=== PATIENT | male | born 1965 | race American Indian/Alaskan Native ===

== ENCOUNTER 2017-04-15 10:08 | Emergency (ER) | payer OTHER, BC ==
[2017-04-15 10:15] VITALS: BP 124/68
--- NOTE | 2017-04-15 11:09 | Emergency Department Report ---
ED Lower Extremity HPI - General Chief Complaint: Extremity Problem,Nontraumatic Stated Complaint: RIGHT ANKLE SWOLLEN Time Seen by Provider: 04/15/17 10:23 Source: patient Mode of arrival: Ambulatory Limitations: No Limitations - History of Present Illness MD Complaint: other (FOOT- HEAL AREA) -: Sudden (SINCE ) Improves With: nothing Associated Symptoms: denies: snap/pop sensation, swelling, numbness, tingling, unable to bear weight, able to partially bear weight, ambulatory - Related Data Previous Rx's Medication Instructions Recorded Last Taken Type predniSONE [Deltasone] 20 mg PO DAILY #5 tablet 04/15/17 Unknown Rx traMADol [Ultram] 50 mg PO Q6HR PRN #10 tablet 04/15/17 Unknown Rx Allergies Allergy/AdvReac Type Severity Reaction Status Date / Time No Known Allergies Allergy Unverified 04/15/17 10:15 ED Review of Systems ROS: Stated complaint: RIGHT ANKLE SWOLLEN Other details as noted in HPI Comment: All other systems reviewed and negative Musculoskeletal: other (R FOOT PAIN - HE POINTS TO HEAL; WORKS FOR [employer]) ED Past Medical Hx - Past Medical History Previous Medical History?: Yes Hx Hypertension: Yes - Surgical History Past Surgical History?: No - Social History Smoking Status: Never Smoker Substance Use Type: None - Medications Home Medications: Home Medications Medication Instructions Recorded Confirmed Last Taken Type predniSONE [Deltasone] 20 mg PO DAILY #5 tablet 04/15/17 Unknown Rx traMADol [Ultram] 50 mg PO Q6HR PRN #10 tablet 04/15/17 Unknown Rx ED Physical Exam - General Limitations: No Limitations General appearance: alert, in no apparent distress - Head Head exam: Present: atraumatic - Eye Eye exam: Present: PERRL - ENT ENT exam: Present: mucous membranes moist - Neck Neck exam: Present: normal inspection - Respiratory Respiratory exam: Present: normal lung sounds bilaterally - Cardiovascular Cardiovascular Exam: Present: regular rate - GI/Abdominal GI/Abdominal exam: Present: soft - Rectal Rectal exam: Present: deferred - Extremities Exam Extremities exam: Present: normal inspection, full ROM, normal capillary refill. Absent: tenderness, pedal edema, joint swelling - Back Exam Back exam: Present: normal inspection, full ROM - Neurological Exam Neurological exam: Present: alert, oriented X3, CN II-XII intact - Psychiatric Psychiatric exam: Present: normal affect, normal mood - Skin Skin exam: Present: warm, dry, intact ED Course Vital Signs 04/15/17 10:12 Temperature 98 F Pulse Rate 84 Respiratory 20 Rate Blood Pressure 124/68 O2 Sat by Pulse 100 Oximetry - Reevaluation(s) Reevaluation #1: 04/15/17 11:31 TO ER W RIGHT HEEL PAIN NEW SHOES FOR 9$ AND THEN IT STARTED HE WORKS W [employer] N/V INTACT GOOD PULSES FULL ROM 'NO POINT TENDERNESS XRAY NOTED NO TRAUMA DISCUSSED FOOT CARE MEDICATED DC HOME W DC POC ED Lower Extremity MDM - Radiology Data Radiology results: image reviewed - Medical Decision Making SEE NOTE - Differential Diagnosis RO FX Critical care attestation.: If time is entered above; I have spent that time in minutes in the direct care of this critically ill patient, excluding procedure time. ED Disposition Clinical Impression: Heel pain, Arthritis Disposition: DC-01 TO HOME OR SELFCARE Is pt being admited?: No Does the pt Need Aspirin: No Condition: Stable Instructions: Arthralgia (ED) Prescriptions: predniSONE [Deltasone] 20 mg PO DAILY #5 tablet traMADol [Ultram] 50 mg PO Q6HR PRN #10 tablet PRN Reason: Pain Referrals: PRIMARY CARE, [Referring] - 3-5 Days EMILIO CARRILLO MD [Staff Physician] - 3-5 Days SHELBI LUDWIG MD [Staff Physician] - 3-5 Days Time of Disposition: 11:08
[2017-04-15] MEDS ORDERED: TORADOL IM ONE (11:30)
--- NOTE | 2017-04-15 12:20 | XRay Report ---
RIGHT ANKLE RADIOGRAPHS INDICATION: Right ankle pain. COMPARISON: None similar at this institution. FINDINGS: AP, lateral and oblique right ankle radiographs demonstrate intact mortise, malleoli and talar dome contour. Subtle diffuse soft tissue swelling not entirely excluded versus physiologic. CONCLUSION: No acute right ankle bony abnormality, as described. Please correlate. Thank you for the opportunity to participate in this patient's care.
== END 2017-04-15 12:42 | disposition home or self-care (01) ==
LOC: ED 10:08
DX: M79.671 Pain in right foot (principal); M19.90 Unspecified osteoarthritis, unspecified site; I10 Essential (primary) hypertension
CPT/HCPCS: 73610; 96372; 99283; J1885

== ENCOUNTER 2017-07-31 09:26 | Emergency (ER) | payer OTHER, BC ==
[2017-07-31 09:35] VITALS: BP 141/99
--- NOTE | 2017-07-31 10:59 | Emergency Department Report ---
- General Chief complaint: Skin/Abscess/Foreign Body Stated complaint: BED BUGS Time Seen by Provider: 07/31/17 09:39 Source: patient Mode of arrival: Ambulatory Limitations: No Limitations - History of Present Illness Initial comments: This is a 51-year-old male nontoxic, well nourished in appearance, no acute signs of distress presents to the ED with c/o of itching to bilateral upper extremities only. Patient stated that he was diagnosed with bedbugs and last week got his house treated and has subsided but the itching has never subsided. Patient stated that he be taking [id number] creams with no relief. Patient denies any fever, chills, nausea, vomiting, headache, stiff neck, numbness, tingling, back pain, chest pain or shortness of breath. Patient denies any allergies. PMH includes HTN. MD complaint: rash (itching) -: week(s) (1) Location: [facility] Severity: mild Severity scale (0 -10): 0 Consistency: constant Improves with: none Worsens with: none Context: none Associated symptoms: denies other symptoms Treatments Prior to Arrival: none - Related Data Previous Rx's Medication Instructions Recorded Last Taken Type predniSONE [Deltasone] 20 mg PO DAILY #5 tablet 04/15/17 Unknown Rx traMADol [Ultram] 50 mg PO Q6HR PRN #10 tablet 04/15/17 Unknown Rx Prednisone [predniSONE 10 mg 10 mg PO .TAPER #1 tab.ds.pk 07/31/17 Unknown Rx (6-Day Pack, 21 Tabs)] diphenhydrAMINE [Benadryl CAP] 50 mg PO Q8HR PRN #20 capsule 07/31/17 Unknown Rx Allergies Allergy/AdvReac Type Severity Reaction Status Date / Time No Known Allergies Allergy Unverified 07/31/17 09:35 Abscess Boil HPI - HPI Chief Complaint: Skin/Abscess/Foreign Body Stated Complaint: BED BUGS Time Seen by Provider: 07/31/17 09:39 Home Medications: Previous Rx's Medication Instructions Recorded Last Taken Type predniSONE [Deltasone] 20 mg PO DAILY #5 tablet 04/15/17 Unknown Rx traMADol [Ultram] 50 mg PO Q6HR PRN #10 tablet 04/15/17 Unknown Rx Prednisone [predniSONE 10 mg 10 mg PO .TAPER #1 tab.ds.pk 07/31/17 Unknown Rx (6-Day Pack, 21 Tabs)] diphenhydrAMINE [Benadryl CAP] 50 mg PO Q8HR PRN #20 capsule 07/31/17 Unknown Rx Allergies/Adverse Reactions: Allergies Allergy/AdvReac Type Severity Reaction Status Date / Time No Known Allergies Allergy Unverified 07/31/17 09:35 ED Review of Systems ROS: Stated complaint: BED BUGS Other details as noted in HPI Constitutional: denies: chills, fever Eyes: denies: eye pain, eye discharge, vision change ENT: denies: ear pain, throat pain Respiratory: denies: cough, shortness of breath, wheezing Cardiovascular: denies: chest pain, palpitations Endocrine: no symptoms reported Gastrointestinal: denies: abdominal pain, nausea, diarrhea Genitourinary: denies: urgency, dysuria Musculoskeletal: denies: back pain, joint swelling, arthralgia Skin: denies: rash, lesions Neurological: denies: headache, weakness, paresthesias Psychiatric: denies: anxiety, depression Hematological/Lymphatic: denies: easy bleeding, easy bruising ED Past Medical Hx - Past Medical History Previous Medical History?: Yes Hx Hypertension: Yes Additional medical history: High cholesterol - Surgical History Past Surgical History?: No - Social History Smoking Status: Never Smoker Substance Use Type: None - Medications Home Medications: Home Medications Medication Instructions Recorded Confirmed Last Taken Type predniSONE [Deltasone] 20 mg PO DAILY #5 tablet 04/15/17 Unknown Rx traMADol [Ultram] 50 mg PO Q6HR PRN #10 tablet 04/15/17 Unknown Rx Prednisone [predniSONE 10 mg 10 mg PO .TAPER #1 tab.ds.pk 07/31/17 Unknown Rx (6-Day Pack, 21 Tabs)] diphenhydrAMINE [Benadryl CAP] 50 mg PO Q8HR PRN #20 capsule 07/31/17 Unknown Rx ED Physical Exam - General Limitations: No Limitations General appearance: alert, in no apparent distress - Head Head exam: Present: atraumatic, normocephalic - Eye Eye exam: Present: normal appearance Pupils: Present: normal accommodation - ENT ENT exam: Present: normal exam, normal orophraynx, mucous membranes moist - Neck Neck exam: Present: normal inspection, full ROM - Respiratory Respiratory exam: Present: normal lung sounds bilaterally. Absent: respiratory distress, wheezes, rales, rhonchi, stridor - Cardiovascular Cardiovascular Exam: Present: regular rate, normal rhythm, normal heart sounds. Absent: bradycardia, tachycardia, irregular rhythm, systolic murmur, diastolic murmur, rubs, gallop - GI/Abdominal GI/Abdominal exam: Present: soft, normal bowel sounds - Rectal Rectal exam: Present: deferred - Extremities Exam Extremities exam: Present: normal inspection, full ROM, normal capillary refill - Back Exam Back exam: Present: normal inspection - Neurological Exam Neurological exam: Present: alert, oriented X3 - Psychiatric Psychiatric exam: Present: normal affect, normal mood - Skin Skin exam: Present: warm, dry, intact, normal color, rash (with itching) ED Course Vital Signs 07/31/17 09:32 Temperature 98.4 F Pulse Rate 88 Respiratory 16 Rate Blood Pressure 141/99 O2 Sat by Pulse 99 Oximetry - Reevaluation(s) Reevaluation #1: 07/31/17 10:57 Patient is speaking in full sentences with no signs of distress noted. Critical care attestation.: If time is entered above; I have spent that time in minutes in the direct care of this critically ill patient, excluding procedure time. ED Disposition Clinical Impression: Itching, Rash Disposition: DC-01 TO HOME OR SELFCARE Is pt being admited?: No Does the pt Need Aspirin: No Condition: Stable Instructions: Prednisone (By mouth), Diphenhydramine (By mouth) Additional Instructions: Follow-up with a primary care doctor in 3-5 days or if symptoms worsen and continue return to emergency room as soon as possible. Prescriptions: diphenhydrAMINE [Benadryl CAP] 50 mg PO Q8HR PRN #20 capsule PRN Reason: Itching Prednisone [predniSONE 10 mg (6-Day Pack, 21 Tabs)] 10 mg PO .TAPER #1 tab.ds.pk Referrals: JOSÉ MIGUEL VILLARREAL MD [Primary Care Provider] - 3-5 Days SARIAH MENSAH MD [Staff Physician] - 3-5 Days PRIMARY CARE, [Referring] - 3-5 Days [facility] [Outside] - 3-5 Days [facility] [Outside] - 3-5 Days Forms: Work/School Release Form(ED)
== END 2017-07-31 11:29 | disposition home or self-care (01) ==
LOC: ED 09:26
DX: L29.9 Pruritus, unspecified (principal); R21 Rash and other nonspecific skin eruption; I10 Essential (primary) hypertension
CPT/HCPCS: 99282

== ENCOUNTER 2017-12-22 09:30 | Emergency (ER) | payer OTHER, BC ==
[2017-12-22 09:58] VITALS: BP 124/76
--- NOTE | 2017-12-22 10:41 | Emergency Department Report ---
ED Back Pain/Injury HPI - General Chief Complaint: Back Pain/Injury Stated Complaint: FLANK PAIN Time Seen by Provider: 12/22/17 10:35 Source: patient Limitations: No Limitations - History of Present Illness Initial Comments: Patient report lower back strain since yesterday. He said he thinks he was leaning over while he was in a [employer] and then after getting out of bed this morning he is having stiffness and pain to his right lower back. Denies any direct trauma. Denies any urinary burning frequency or urgency. Denies any nausea vomiting. Pain at present is 2/10 and feeling tight and sharp. No radiation of pain to extremities and no loss of bowel or bladder function. Pain is constant and not alleviated in factors but exacerbated by movement MD Complaint: back pain Onset/Timin -: days(s) Similar Symptoms Previously: Yes Place: street Radiation: none Severity: mild Severity scale (0 -10): 2 Quality: sharp Consistency: constant Improves With: none Worsens With: movement Context: bending Associated Symptoms: denies other symptoms. denies: confusion, weakness, chest pain, numbness, difficulty walking, cough, difficulty urinating, diaphoresis, incontinence, fever/chills, constipation, abdominal pain, loss of appetite, malaise, nausea/vomiting, rash, seizure, shortness of breath, syncope Treatments Prior to Arrival: other (none) - Related Data Previous Rx's Medication Instructions Recorded Last Taken Type predniSONE [Deltasone] 20 mg PO DAILY #5 tablet 04/15/17 Unknown Rx traMADol [Ultram] 50 mg PO Q6HR PRN #10 tablet 04/15/17 Unknown Rx Prednisone [predniSONE 10 mg 10 mg PO .TAPER #1 tab.ds.pk 07/31/17 Unknown Rx (6-Day Pack, 21 Tabs)] diphenhydrAMINE [Benadryl CAP] 50 mg PO Q8HR PRN #20 capsule 07/31/17 Unknown Rx Cyclobenzaprine [Flexeril] 10 mg PO TID PRN #12 tablet 12/22/17 Unknown Rx Ibuprofen [Motrin 600 MG tab] 600 mg PO Q8H PRN #15 tablet 12/22/17 Unknown Rx Allergies Allergy/AdvReac Type Severity Reaction Status Date / Time No Known Allergies Allergy Unverified 07/31/17 09:35 ED Review of Systems ROS: Stated complaint: FLANK PAIN Other details as noted in HPI Constitutional: denies: chills, fever Eyes: denies: eye pain, eye discharge, vision change Respiratory: denies: cough, shortness of breath, SOB with exertion, SOB at rest , stridor, wheezing Cardiovascular: denies: chest pain, palpitations Gastrointestinal: denies: abdominal pain, nausea, vomiting, diarrhea Musculoskeletal: back pain, myalgia. denies: joint swelling, arthralgia Skin: denies: rash, lesions Neurological: denies: headache, weakness, numbness, paresthesias, confusion, abnormal gait, vertigo Hematological/Lymphatic: denies: easy bleeding ED Past Medical Hx - Past Medical History Medical history: hypertension High cholesterol Surgical history: no surgical history Psychiatric history: no pertinent history Family history: hypertension - Social History Smoking Status: Never Smoker Alcohol use: none Drug use: cocaine ED Back Pain Physical Exam - Exam General: Vital signs noted. No distress. Alert and acting appropriately. This is a 52-year-old male well-nourished well-developed in no acute distress. Back/Abdomen: No Abdominal Tenderness, No Perithoracic Tenderness, No Perilumbar Tenderness (reports pain to right side on range of motion with leaning forward.), No Sacroiliac Tenderness, No Flank Tenderness, No Straight Leg Raise Pain Neuro: Yes Normal Sensation, Yes Normal DTR's, Yes Normal Gait, No Motor Weakness ED Course Vital Signs 12/22/17 09:56 Temperature 98.6 F Pulse Rate 71 Respiratory 18 Rate Blood Pressure 124/76 O2 Sat by Pulse 95 Oximetry - Reevaluation(s) Reevaluation #1: 12/22/17 12:09 Patient had uneventful ED stay. Ed Back Pain Tests - Tests Tests: Normal UA ED Medical Decision Making - Lab Data Lab Results 12/22/17 Range/Units Unknown Urine Color Yellow (Yellow) Urine Turbidity Clear (Clear) Urine pH 7.0 (5.0-7.0) Ur Specific [place] 1.025 (1.003-1.030) Urine Protein <15 mg/dl (Negative) mg/dL Urine Glucose (UA) Neg (Negative) mg/dL Urine Ketones Neg (Negative) mg/dL Urine Blood Neg (Negative) Urine Nitrite Neg (Negative) Urine Bilirubin Neg (Negative) Urine Urobilinogen 2.0 (<2.0) mg/dL Ur Leukocyte Esterase Neg (Negative) Urine WBC (Auto) 2.0 (0.0-6.0) /HPF Urine RBC (Auto) 2.0 (0.0-6.0) /HPF Urine Mucus Few /HPF - Medical Decision Making This is a 52-year-old male here report right lower back pain after bending and twisting his back yesterday. He is here to be evaluated. Patient was seen and evaluated by myself and physical exam is normal except he has pain with leaning forward to his right back and lumbar area. No rash or swelling. Nontender to palpate with no deformity. No vertebral tenderness. Patient is neurologically intact and he is able to ambulate without any difficulties. Patient stable pain is controlled, vital signs stable and he is afebrile. I discussed urinalysis with patient which was negative findings and I discussed diagnosis and treatment plan with him and he voiced understanding. Patient discharged home with prescription for Flexeril and Motrin and to follow- up with orthopedic doctor in 5 days. Critical care attestation.: If time is entered above; I have spent that time in minutes in the direct care of this critically ill patient, excluding procedure time. ED Disposition Clinical Impression: Lower back pain Qualifiers: Chronicity: acute Back pain laterality: right Sciatica presence: without sciatica Qualified Code(s): M54.5 - Low back pain Low back strain Qualifiers: Encounter type: initial encounter Qualified Code(s): S39.012A - Strain of muscle, fascia and tendon of lower back, initial encounter Disposition: TO HOME OR SELFCARE Is pt being admited?: No Does the pt Need Aspirin: No Condition: Stable Instructions: Muscle Strain (ED), Back Pain (ED) Additional Instructions: Please state Motrin for pain and Flexeril for muscle strain. Do not drive or operative heavy machinery while taking Flexeril of this medication causes drowsiness. Follow-up with orthopedic doctor as instructed Referrals: SHELBI LUDWIG MD [Staff Physician] - 2-3 Days PRIMARY CAREMD [Primary Care Provider] - 2-3 Days Forms: Work/School Release Form(ED)
[2017-12-22 11:03] LABS: Bilirubin,Urine NEG (Negative); Blood,Urine NEG (Negative); Color,Urine Yellow (Yellow); Mucus,Urine FEW /HPF; Protein,Urine <15 mg/dL mg/dL (Negative)
== END 2017-12-22 12:23 | disposition home or self-care (01) ==
LOC: ED 09:30
DX: S39.012A Strain of muscle, fascia and tendon of lower back, initial encounter (principal); I10 Essential (primary) hypertension; E78.00 Pure hypercholesterolemia, unspecified; X58.XXXA Exposure to other specified factors, initial encounter; Y93.89 Activity, other specified; Y92.89 Other specified places as the place of occurrence of the external cause; Y99.8 Other external cause status
CPT/HCPCS: 81001; 99282